=== PATIENT | male | born 1935 | race Caucasian/White ===

== ENCOUNTER 2016-05-26 13:35 | Inpatient (IN) | payer MEDICARE, BC, MEDICAID ==
--- NOTE | 2016-05-26 13:46 | ED Physician Chart ---
Chief Complaint/HPI - Patient Information Date Seen:: 05/26/16 Time Seen:: 13:46 Chief Complaint:: cough History of Present Illness:: 80-year-old male history of COPD brought in by EMS with acute, constant, nonproductive, moderate, cough that started this morning. Has associated fever and slight shortness of breath. Historian:: Patient, EMS Review:: Nurse's Note Reviewed, EMS run form Reviewed, Transfer documents Reviewed Review of Systems - Review of Systems Other: Complete system review otherwise unremarkable except as noted in HPI. Past Medical History - Past Medical History Past Medical History: HTN, Asthma/COPD, Thyroid disorder, Other (coronary artery disease, peripheral vascular disease) Family History: None Social History: Non Smoker, No Alcohol, No Drug Use, Care Facility Surgical History: other (left BKA) Psychiatricy History: None Medication: Reviewed Family Medical History - Family Member Mother History Unknown: Yes Physical Exam - Physical Examination Other:: INITIAL VITAL SIGNS: Reviewed by me GENERAL: Alert and interactive. No acute distress HEAD: Head is normocephalic and atraumatic EYES: EOMI. . No scleral icterus. No conjunctival injection ENT: Moist mucous membranes. NECK: Supple. No masses. Full range of motion RESPIRATORY: No tachypnea. Coarse breath sounds bilaterally with prolonged expiratory phase bilaterally. No wheezing, rales, or rhonchi CV: Regular rate and rhythm. No murmurs, rubs, or gallops ABDOMEN: Soft, non-distended, non-tender. No guarding. No rebound. No masses. EXTREMITIES: No deformity. No cyanosis. No edema. 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 SKIN: Warm and dry. No obvious rashes. NEUROLOGIC: Alert and oriented. Face is symmetric. Speech is normal. Moves all extremities equally. Motor and sensory distally intact. Labs/Radiology/EKG Results - Lab Results Results: Lab Results 05/26/16 05/26/16 05/26/16 Range/Units 13:55 13:55 13:55 WBC 18.5 H (4.8-10.8) Th/cmm RBC 4.13 (3.80-5.80) Mil/cmm Hgb 12.2 L (12.6-17.4) gm/dL Hct 37.5 L (39.0-49.0) % MCV 90.6 (80-99) fl MCH 29.6 (27.0-31.0) pg MCHC Differential 32.7 (28.0-36.0) pg RDW 19.8 (11.5-20.0) % Plt Count 451 H (150-400) Th/cmm MPV 7.2 fl Neutrophils % 81.8 H (40.0-80.0) % Lymphocytes % 10.0 L (20.0-50.0) % Monocytes % 7.2 (2.0-10.0) % Eosinophils % 0.2 (0.0-5.0) % Basophils % 0.8 (0.0-2.0) % PT 10.5 (9.5-11.5) SECONDS INR 1.01 (0.5-1.4) PTT (Actin FS) 26.3 (26.0-38.0) SECONDS Sodium 127 L (136-145) mEq/L Potassium 5.6 H (3.5-5.1) mEq/L Chloride 95 L (98-107) mEq/L Carbon Dioxide 23.1 (21.0-31.0) mEq/L Anion Gap 14.5 (7.0-16.0) BUN 19 (7-25) mg/dL Creatinine 1.0 (0.7-1.3) mg/dL Est GFR ( Amer) TNP Est GFR (Non-Af Amer) TNP BUN/Creatinine Ratio 19.0 Glucose 114 H (70-105) mg/dL Whole Bld Lactic Acid (0.60-1.99) mmol/L Calcium 10.0 (8.6-10.3) mg/dL Total Bilirubin 0.5 (0.3-1.0) mg/dL AST 18 (13-39) U/L ALT 10 (7-52) U/L Alkaline Phosphatase 111 H (34-104) U/L Creatine Kinase 21 L (30-223) U/L Total Protein 7.5 (6.0-8.3) gm/dL Albumin 4.1 L (4.2-5.5) gm/dL Globulin 3.4 gm/dL Albumin/Globulin Ratio 1.2 (1.0-1.8) 05/26/16 Range/Units 13:55 WBC (4.8-10.8) Th/cmm RBC (3.80-5.80) Mil/cmm Hgb (12.6-17.4) gm/dL Hct (39.0-49.0) % MCV (80-99) fl MCH (27.0-31.0) pg MCHC Differential (28.0-36.0) pg RDW (11.5-20.0) % Plt Count (150-400) Th/cmm MPV fl Neutrophils % (40.0-80.0) % Lymphocytes % (20.0-50.0) % Monocytes % (2.0-10.0) % Eosinophils % (0.0-5.0) % Basophils % (0.0-2.0) % PT (9.5-11.5) SECONDS INR (0.5-1.4) PTT (Actin FS) (26.0-38.0) SECONDS Sodium (136-145) mEq/L Potassium (3.5-5.1) mEq/L Chloride (98-107) mEq/L Carbon Dioxide (21.0-31.0) mEq/L Anion Gap (7.0-16.0) BUN (7-25) mg/dL Creatinine (0.7-1.3) mg/dL Est GFR ( Amer) Est GFR (Non-Af Amer) BUN/Creatinine Ratio Glucose (70-105) mg/dL Whole Bld Lactic Acid 1.94 (0.60-1.99) mmol/L Calcium (8.6-10.3) mg/dL Total Bilirubin (0.3-1.0) mg/dL AST (13-39) U/L ALT (7-52) U/L Alkaline Phosphatase (34-104) U/L Creatine Kinase (30-223) U/L Total Protein (6.0-8.3) gm/dL Albumin (4.2-5.5) gm/dL Globulin gm/dL Albumin/Globulin Ratio (1.0-1.8) - Radiology Results Results: Single AP VIEW Portable Chest X-ray was interpreted independently and contemporaneously by Elsy Powell MD: No cardiomegaly Normal mediastinum Lower lobe atelectasis versus infiltrate No pneumothorax No soft tissue or bony abnormalities - EKG Interpretations Comments:: 12-lead EKG Interpretation by Elsy Powell MD: Ventricular paced complexes with rate of 87 beats per minute Normal axis Normal intervals No acute ST or T wave changes. No obvious STEMI ED Septic Shock - . Is Septic Shock (SBP<90, OR Lactate>4 mmol\L) present?: No Reassessment (Disposition) - Reassessment Reassessment:: Patient appears to be having COPD exacerbation. Received IV Solu-Medrol, and breathing treatment. Received IV antibiotics. Patient was stabilized. Also has left lower extremity cellulitis of the stump where the BKA was done. Discussed case with the admitting physician. Patient admitted for COPD exacerbation. Reassessment Condition:: Unchanged - Diagnosis Diagnosis:: COPD exacerbation Left lower extremity cellulitis Hypercalcemia Hypertension - Patient Disposition Discharge/Transfer:: Acute Care w/in this hosp Admitted to:: Med/Surg Admitting Medical Physician:: Padilla Owen Time:: 14:20 Condition at Disposition:: Stable ED Discharge Plan - Patient Disposition Admit/Discharge/Transfer: Acute Care w/in this hosp Condition at Disposition: Stable
[2016-05-26] MEDS ORDERED: Albuterol/Ipratropium Neb 3 ML AERS HHN ONE ×2 (13:54→14:14)
[2016-05-26] MEDS ORDERED: cefTRIAXone 1 GM in Sodium Chloride 0.9% 50 ML IV ONE (13:55)
[2016-05-26] MEDS ORDERED: Sodium Chloride 0.9% 1,000 ML IV ONE (13:56)
[2016-05-26 14:38] LABS: % BASOPHILS 0.8 % (0.0-2.0); % EOSINOPHILS 0.2 % (0.0-5.0); % MONOCYTES 7.2 % (2.0-10.0); % NEUTROPHILS 81.8 % (40.0-80.0); HEMATOCRIT 37.5 % (39.0-49.0); HEMOGLOBIN 12.2 gm/dL (12.6-17.4); MEAN CELL VOLUME 90.6 fl (80-99); MEAN CORPUSCULAR HEMOGLOBIN 29.6 pg (27.0-31.0); MEAN CORPUSCULAR HGB CONC 32.7 pg (28.0-36.0); MEAN PLATELET VOLUME 7.2 fl; NEUTROPHILE ABSOLUTE 15.2 Th/cmm (1.8-8.0); PLATELET COUNT 451 Th/cmm (150-400); RED BLOOD COUNT 4.13 Mil/cmm (3.80-5.80); RED CELL DISTRIBUTION WIDTH 19.8 % (11.5-20.0)
[2016-05-26 14:43] LABS: WHITE BLOOD COUNT 18.5 Th/cmm (4.8-10.8)
[2016-05-26 14:44] LABS: INR 1.01 (0.5-1.4); PROTHROMBIN TIME (TEST) 10.5 SECONDS (9.5-11.5)
[2016-05-26 14:46] LABS: ALB/GLOB RATIO 1.2 (1.0-1.8); ALKALINE PHOSPHATASE 111 U/L (34-104); ANION GAP 14.5 (7.0-16.0); BILIRUBIN,TOTAL 0.5 mg/dL (0.3-1.0); BUN - UREA NITROGEN 19 mg/dL (7-25); CARBON DIOXIDE 23.1 mEq/L (21.0-31.0); CHLORIDE 95 mEq/L (98-107); GLUCOSE 114 mg/dL (70-105); POTASSIUM SERUM 5.6 mEq/L (3.5-5.1); SGOT 18 U/L (13-39); SGPT/ALT 10 U/L (7-52); SODIUM SERUM 127 mEq/L (136-145)
--- NOTE | 2016-05-26 14:50 | Diagnostic Imaging Report ---
CHEST X-RAY: AP view INDICATION: pain COMPARISON: None Findings: Chronic lung changes are seen with increased right basal lung markings. There is also 2 cm left midlung opacity. No pleural effusions. Heart size normal. Atherosclerosis is noted. Degenerative changes of the spine are noted with scoliosis and compression fracture of a midthoracic vertebral body. Gas-filled loops of bowel and stomach are seen along the upper abdomen. IMPRESSION: Chronic lung changes of probable COPD. Right basal atelectasis versus scarring. Underlying infiltrate is less likely. 2 cm left midlung opacity nonspecific, however a granuloma or other pulmonary nodules cannot be excluded. Recommend correlation with old exams if available. Alternatively, CT of the chest is recommended for further assessment. Atherosclerotic vascular disease. Pacemaker noted. Final results were administered to the ER on 05/26/2016 at 2:47 PM.
[2016-05-26 15:42] LABS: URINE BILIRUBIN NEGATIVE (NEGATIVE); URINE BLOOD TRACE (NEGATIVE); URINE COLOR YELLOW; URINE GLUCOSE (UA) NEGATIVE (NEGATIVE); URINE KETONE NEGATIVE (NEGATIVE); URINE PH 6.5; URINE PROTEIN NEGATIVE (NEGATIVE); URINE UROBILINOGEN 0.2 E.U./dL (0.2 - 1.0)
[2016-05-26 15:43] LABS: URINE BACTERIA 1+ /hpf (NONE SEEN); URINE EPITHELIAL CELLS OCCASIONAL /lpf (FEW); URINE RBC 0-2 /hpf (0-5)
[2016-05-26 15:44] LABS: URINE WBC 50-100 /hpf (0-5)
[2016-05-26] MEDS ORDERED: Albuterol/Ipratropium Neb 3 ML AERS HHN PRN (15:46)
[2016-05-26] MEDS: Albuterol/Ipratropium Neb 3 ML AERS HHN SCH (20:23)
[2016-05-26] MEDS ORDERED: LEVOFLOXACIN IV ONE (20:40)
[2016-05-26] MEDS: Levofloxacin 500mg/100mL 500 MG/100 ML BAG IV SCH (21:04)
[2016-05-26] MEDS: HYDROmorphone 1 mg/mL 1mL Syr IVP PRN (21:05)
--- NOTE | 2016-05-26 21:18 | Admit Criteria Form ---
Admit Criteria Forms - Admit Criteria Diagnosis: COPD Clinical Indications for Admission to Inpatient Care (Place 'X' for any and all applicable criteria): Admission is indicated for ANY ONE of the following (1)(2)(3): [X]I. Acute exacerbation by high-risk comorbidity (e.g., pneumonia, dysrhythmia, heart failure, pleural effusion, pneumothorax) or severe underlying COPD (e.g., steroid dependent) [ ]II. Inpatient admission required rather than observation care (see Chronic Obstructive Pulmonary Disease: Observation Care) because of ANY ONE of the following: [ ]a) New or pre-existing signs or symptoms of COPD (eg, dyspnea or Tachypnea at rest or with minimal activity) that persist despite outpatient and observation care treatment [ ]b) New-onset hypoxemia (room air SaO2 less than 90%, PO2 less than 60 mm Hg (8.0 kPa)) that persists despite outpatient and observation care treatment [ ]c) Worsening of pre-existing hypoxemia (eg, new or increased requirement for supplemental oxygen to maintain oxygenation at baseline level) that persists despite outpatient and observation care treatment, with oxygen treatment needs performable only in acute inpatient setting [ ]d) Hypercarbia (PCO2 greater than 40 mm Hg (5.3 kPa))-induced respiratory acidosis (pH less than 7.35) that persists despite outpatient and observation care treatment [ ]e) Supplemental oxygen or respiratory treatments for over 24 hours that are performable only in acute inpatient setting [ ]f) Chest tube placement with active evacuation (e.g., suction, drainage) (5) [ ]g) Other condition, treatment or monitoring requiring inpatient admission [ ]III. Planned invasive surgical or diagnostic procedures requiring acute- care hospitalization [ ]IV. Acute respiratory failure (e.g., uncompensated hypercarbia, severe hypoxemia) [ ]V. Severe comorbid condition (e.g., severe steroid myopathy, acute vertebral fracture) that has acutely worsened pulmonary function [ ]. Confusion state, lethargy, obtundation, stupor or coma Extended stay beyond goal length of stay may be needed for (31)(32): [ ]a ) Respiratory Failure. [ ]b) Severe or persisting hypoxemia or hypercarbia [ ]c) Severe or persistent dyspnea [ ]d) Comorbidities (e.g. chronic heart failure, atrial fibrillation with rapid response, pneumonia) [ ]e) Malnutrition The original [facility] content created by [facility] [place] has been revised. The portions of the content which have been revised are identified through the use of italic text or in bold, and [facility] has neither reviewed nor approved the modified material. All other unmodified content is copyright [email or web address]. Please see references footnoted in the original [email or web address] edition 2016 Admit Criteria Met?: Yes
[2016-05-27] MEDS: HYDROmorphone 1 mg/mL 1mL Syr IVP PRN (01:07)
[2016-05-27] MEDS: Albuterol/Ipratropium Neb 3 ML AERS HHN SCH ×4 (01:58→18:42)
[2016-05-27] MEDS ORDERED: HYDROmorphone 1 mg/mL 1mL Syr IVP ONE (02:02)
[2016-05-27] MEDS: HYDROmorphone 2 mg/mL 1mL Vial IVP PRN ×5 (05:17→20:00)
[2016-05-27] MEDS ORDERED: IOHEXOL 300MG/ML 100 ML VIAL IVP ONE (10:30)
--- NOTE | 2016-05-27 11:55 | General Progress Note ---
Subjective - Review of Systems Service Date: 05/27/16 Subjective: c/o pain sob cough Objective - Results Result Diagrams: 05/26/16 13:55 05/26/16 13:55 Recent Labs: Laboratory Last Values WBC 18.5 Th/cmm (4.8-10.8) H 05/26/16 13:55 RBC 4.13 Mil/cmm (3.80-5.80) 05/26/16 13:55 Hgb 12.2 gm/dL (12.6-17.4) L 05/26/16 13:55 Hct 37.5 % (39.0-49.0) L 05/26/16 13:55 MCV 90.6 fl (80-99) 05/26/16 13:55 MCH 29.6 pg (27.0-31.0) 05/26/16 13:55 MCHC Differential 32.7 pg (28.0-36.0) 05/26/16 13:55 RDW 19.8 % (11.5-20.0) 05/26/16 13:55 Plt Count 451 Th/cmm (150-400) H 05/26/16 13:55 MPV 7.2 fl 05/26/16 13:55 Neutrophils % 81.8 % (40.0-80.0) H 05/26/16 13:55 Lymphocytes % 10.0 % (20.0-50.0) L 05/26/16 13:55 Monocytes % 7.2 % (2.0-10.0) 05/26/16 13:55 Eosinophils % 0.2 % (0.0-5.0) 05/26/16 13:55 Basophils % 0.8 % (0.0-2.0) 05/26/16 13:55 PT 10.5 SECONDS (9.5-11.5) 05/26/16 13:55 INR 1.01 (0.5-1.4) 05/26/16 13:55 PTT (Actin FS) 26.3 SECONDS (26.0-38.0) 05/26/16 13:55 Sodium 127 mEq/L (136-145) L 05/26/16 13:55 Potassium 5.6 mEq/L (3.5-5.1) H 05/26/16 13:55 Chloride 95 mEq/L (98-107) L 05/26/16 13:55 Carbon Dioxide 23.1 mEq/L (21.0-31.0) 05/26/16 13:55 Anion Gap 14.5 (7.0-16.0) 05/26/16 13:55 BUN 19 mg/dL (7-25) 05/26/16 13:55 Creatinine 1.0 mg/dL (0.7-1.3) 05/26/16 13:55 Est GFR ( Amer) TNP 05/26/16 13:55 Est GFR (Non-Af Amer) TNP 05/26/16 13:55 BUN/Creatinine Ratio 19.0 05/26/16 13:55 Glucose 114 mg/dL (70-105) H 05/26/16 13:55 Whole Bld Lactic Acid 1.94 mmol/L (0.60-1.99) 05/26/16 13:55 Calcium 10.0 mg/dL (8.6-10.3) 05/26/16 13:55 Total Bilirubin 0.5 mg/dL (0.3-1.0) 05/26/16 13:55 AST 18 U/L (13-39) 05/26/16 13:55 ALT 10 U/L (7-52) 05/26/16 13:55 Alkaline Phosphatase 111 U/L (34-104) H 05/26/16 13:55 Creatine Kinase 21 U/L (30-223) L 05/26/16 13:55 Total Protein 7.5 gm/dL (6.0-8.3) 05/26/16 13:55 Albumin 4.1 gm/dL (4.2-5.5) L 05/26/16 13:55 Globulin 3.4 gm/dL 05/26/16 13:55 Albumin/Globulin Ratio 1.2 (1.0-1.8) 05/26/16 13:55 Urine Source CLEAN C 05/26/16 15:00 Urine Color YELLOW 05/26/16 15:00 Urine Clarity HAZY (CLEAR) 05/26/16 15:00 Urine pH 6.5 05/26/16 15:00 Ur Specific [place] 1.010 (1.005-1.030) 05/26/16 15:00 Urine Protein NEGATIVE mg/dL (NEGATIVE) 05/26/16 15:00 Urine Glucose (UA) NEGATIVE mg/dL (NEGATIVE) 05/26/16 15:00 Urine Ketones NEGATIVE mg/dL (NEGATIVE) 05/26/16 15:00 Urine Blood TRACE (NEGATIVE) 05/26/16 15:00 Urine Nitrate NEGATIVE (NEGATIVE) 05/26/16 15:00 Urine Bilirubin NEGATIVE (NEGATIVE) 05/26/16 15:00 Urine Urobilinogen 0.2 E.U./dL (0.2 - 1.0) 05/26/16 15:00 Ur Leukocyte Esterase MODERATE (NEGATIVE) H 05/26/16 15:00 Urine RBC 0-2 /hpf (0-5) H 05/26/16 15:00 Urine WBC 50-100 /hpf (0-5) H 05/26/16 15:00 Ur Epithelial Cells OCCASIONAL /lpf (FEW) 05/26/16 15:00 Urine Bacteria 1+ /hpf (NONE SEEN) H 05/26/16 15:00 Vancomycin Trough 17.7 ug/mL (10-20) 05/27/16 10:00 - Physical Exam Vitals and I&O: Vital Signs Temp 98.3 F 05/27/16 04:00 Pulse 92 05/27/16 07:16 Resp 17 05/27/16 08:00 BP 150/96 05/27/16 04:00 Pulse Ox 98 05/27/16 07:16 Intake & Output 05/26/16 05/27/16 05/27/16 18:59 06:59 18:59 Intake Total 350 Balance 350 Intake: Intake, IV Amount 350 Levofloxacin 500mg/100mL 100 500 mg In 100 ml @ 100 mls/hr IV Q24HR [facility] Rx#: [id number] Vancomycin HCl 1 gm In 250 Sodium Chloride 0.9% 250 ml @ 165 mls/hr IV Q24HR@ 0900 [facility] Rx#:[id number] Other: Stool Characteristics Soft Formed Active Medications: Current Medications Acetaminophen (Tylenol) 650 mg PO Q4HR PRN PRN Reason: FOR PAIN OR FEVER >100.4 Stop: 07/25/16 15:45 Last Admin: 05/26/16 17:59 Dose: 650 mg Albuterol/Ipratropium (Duoneb Neb) 3 ml HHN Q2H PRN PRN Reason: COUGH/CONGESTION Stop: 07/25/16 15:45 Albuterol/Ipratropium (Duoneb Neb) 3 ml HHN Q6HRT [facility] Stop: 07/25/16 18:59 Last Admin: 05/27/16 07:16 Dose: 3 ml Ascorbic Acid (Vitamin C) 500 mg PO DAILY [facility] Stop: 07/26/16 08:59 Last Admin: 05/27/16 09:03 Dose: 500 mg Atorvastatin Calcium (Lipitor) 40 mg PO HS [facility] Stop: 07/25/16 20:59 Last Admin: 05/26/16 21:07 Dose: 40 mg Bisacodyl (Dulcolax 10 Mg Supp) 10 mg RC DAILY PRN PRN Reason: IF MOM INEFFECTIVE Stop: 07/25/16 15:45 Carvedilol (Coreg) 3.125 mg PO Q12H [facility] Stop: 07/25/16 15:59 Last Admin: 05/27/16 04:00 Dose: 3.125 mg Clonidine HCl (Catapres) 0.1 mg PO Q4H PRN PRN Reason: HTN Stop: 07/25/16 15:45 Docusate Sodium (Colace) 100 mg PO BID [facility] Stop: 07/25/16 16:59 Last Admin: 05/27/16 09:03 Dose: 100 mg Famotidine (Pepcid) 20 mg PO DAILY [facility] Stop: 07/26/16 08:59 Last Admin: 05/27/16 09:03 Dose: 20 mg Hydromorphone HCl (Dilaudid) 2 mg IVP Q3HR PRN PRN Reason: Pain (Severe) Stop: 07/26/16 02:03 Last Admin: 05/27/16 09:04 Dose: 2 mg Levofloxacin (Levaquin Pb) 500 mg in 100 mls @ 100 mls/hr IV Q24HR [facility] Stop: 07/25/16 16:59 Last Infusion: 05/26/16 22:04 Dose: Infused Vancomycin HCl 1 gm/ Sodium (Chloride) 250 mls @ 165 mls/hr IV Q24HR@0900 [facility] Stop: 07/25/16 16:59 Last Admin: 05/27/16 09:03 Dose: 165 mls/hr Miscellaneous (Vancomycin Iv Per Pharmacy) 1 ea MC PRN PRN PRN Reason: PROTOCOL Stop: 07/25/16 16:29 Miscellaneous (Epoetin Randall [Epogen]) 10,000 unit IJ QWEEK 07 [facility] Stop: 07/25/16 15:59 Temazepam (Restoril) 30 mg PO HS PRN; Protocol PRN Reason: Insomnia Stop: 07/25/16 20:11 Last Admin: 05/26/16 21:07 Dose: 30 mg General: Alert, Moderate distress Neck: Supple Cardiovascular: Regular rate, Normal S1, Normal S2 Abdomen: Bowel sounds, Soft Neurological: Normal gait Psych/Mental Status: Mental status NL Assessment/Plan - Problem List Patient Problems: All Active Problems COUGH WITH FEVER AND WEAKNESS (Acute) h/o asthma (Acute) h/o asthma (Acute) h/o htn (Acute) leukocytosis (Acute) pnuemonia (Acute) pnuemonia (Acute) sepsis (Acute)
[2016-05-27] MEDS: Levofloxacin 500mg/100mL 500 MG/100 ML BAG IV SCH (16:18)
--- NOTE | 2016-05-27 21:30 | History & Physical ---
HISTORY OF PRESENT ILLNESS: The patient is a 80-year-old male patient known to have history of COPD, complaining of increasing shortness of breath, resides in [facility], came to the Emergency Room, was admitted for asthma and pneumonia. The patient is known to have history of hypertension, asthma, COPD, thyroid disorder. REVIEW OF SYSTEMS: Other than cough is negative. The patient had a workup done, which showed a white count of 18.5 and bilateral rales and the x-ray showed possible left lower lobe infiltrate. The patient was admitted for acute pneumonia, leukocytosis, rule out sepsis, COPD exacerbation. PAST MEDICAL HISTORY: As ____enumerated above, history of asthma, COPD, and thyroid disorder. PHYSICAL EXAMINATION: GENERAL: Alert, oriented male patient, short of breath. HEAD: Normal. ENT: Normal. LUNGS: Bilateral rhonchi. CARDIOVASCULAR: S1, S2 heard. ABDOMEN: Soft. Bowel sounds are heard. CENTRAL NERVOUS SYSTEM: Grossly normal. 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 The patient is being admitted. I will go ahead and give him antibiotics and I will have Dr. Graham also see the patient. I will follow the patient. Thank you very much for your time. JOB# [id number]
[2016-05-28] MEDS: Albuterol/Ipratropium Neb 3 ML AERS HHN SCH ×4 (00:20→19:45)
[2016-05-28] MEDS: HYDROmorphone 2 mg/mL 1mL Vial IVP PRN ×5 (04:10→20:21)
--- NOTE | 2016-05-28 09:14 | General Progress Note ---
Subjective - Review of Systems Service Date: 05/28/16 Subjective: c/o abdominal pains after eating pineapple Objective - Results Result Diagrams: 05/26/16 13:55 05/26/16 13:55 Recent Labs: Laboratory Last Values WBC 18.5 Th/cmm (4.8-10.8) H 05/26/16 13:55 RBC 4.13 Mil/cmm (3.80-5.80) 05/26/16 13:55 Hgb 12.2 gm/dL (12.6-17.4) L 05/26/16 13:55 Hct 37.5 % (39.0-49.0) L 05/26/16 13:55 MCV 90.6 fl (80-99) 05/26/16 13:55 MCH 29.6 pg (27.0-31.0) 05/26/16 13:55 MCHC Differential 32.7 pg (28.0-36.0) 05/26/16 13:55 RDW 19.8 % (11.5-20.0) 05/26/16 13:55 Plt Count 451 Th/cmm (150-400) H 05/26/16 13:55 MPV 7.2 fl 05/26/16 13:55 Neutrophils % 81.8 % (40.0-80.0) H 05/26/16 13:55 Lymphocytes % 10.0 % (20.0-50.0) L 05/26/16 13:55 Monocytes % 7.2 % (2.0-10.0) 05/26/16 13:55 Eosinophils % 0.2 % (0.0-5.0) 05/26/16 13:55 Basophils % 0.8 % (0.0-2.0) 05/26/16 13:55 PT 10.5 SECONDS (9.5-11.5) 05/26/16 13:55 INR 1.01 (0.5-1.4) 05/26/16 13:55 PTT (Actin FS) 26.3 SECONDS (26.0-38.0) 05/26/16 13:55 Sodium 127 mEq/L (136-145) L 05/26/16 13:55 Potassium 5.6 mEq/L (3.5-5.1) H 05/26/16 13:55 Chloride 95 mEq/L (98-107) L 05/26/16 13:55 Carbon Dioxide 23.1 mEq/L (21.0-31.0) 05/26/16 13:55 Anion Gap 14.5 (7.0-16.0) 05/26/16 13:55 BUN 19 mg/dL (7-25) 05/26/16 13:55 Creatinine 1.0 mg/dL (0.7-1.3) 05/26/16 13:55 Est GFR ( Amer) TNP 05/26/16 13:55 Est GFR (Non-Af Amer) TNP 05/26/16 13:55 BUN/Creatinine Ratio 19.0 05/26/16 13:55 Glucose 114 mg/dL (70-105) H 05/26/16 13:55 Whole Bld Lactic Acid 1.94 mmol/L (0.60-1.99) 05/26/16 13:55 Calcium 10.0 mg/dL (8.6-10.3) 05/26/16 13:55 Total Bilirubin 0.5 mg/dL (0.3-1.0) 05/26/16 13:55 AST 18 U/L (13-39) 05/26/16 13:55 ALT 10 U/L (7-52) 05/26/16 13:55 Alkaline Phosphatase 111 U/L (34-104) H 05/26/16 13:55 Creatine Kinase 21 U/L (30-223) L 05/26/16 13:55 Total Protein 7.5 gm/dL (6.0-8.3) 05/26/16 13:55 Albumin 4.1 gm/dL (4.2-5.5) L 05/26/16 13:55 Globulin 3.4 gm/dL 05/26/16 13:55 Albumin/Globulin Ratio 1.2 (1.0-1.8) 05/26/16 13:55 Urine Source CLEAN C 05/26/16 15:00 Urine Color YELLOW 05/26/16 15:00 Urine Clarity HAZY (CLEAR) 05/26/16 15:00 Urine pH 6.5 05/26/16 15:00 Ur Specific [place] 1.010 (1.005-1.030) 05/26/16 15:00 Urine Protein NEGATIVE mg/dL (NEGATIVE) 05/26/16 15:00 Urine Glucose (UA) NEGATIVE mg/dL (NEGATIVE) 05/26/16 15:00 Urine Ketones NEGATIVE mg/dL (NEGATIVE) 05/26/16 15:00 Urine Blood TRACE (NEGATIVE) 05/26/16 15:00 Urine Nitrate NEGATIVE (NEGATIVE) 05/26/16 15:00 Urine Bilirubin NEGATIVE (NEGATIVE) 05/26/16 15:00 Urine Urobilinogen 0.2 E.U./dL (0.2 - 1.0) 05/26/16 15:00 Ur Leukocyte Esterase MODERATE (NEGATIVE) H 05/26/16 15:00 Urine RBC 0-2 /hpf (0-5) H 05/26/16 15:00 Urine WBC 50-100 /hpf (0-5) H 05/26/16 15:00 Ur Epithelial Cells OCCASIONAL /lpf (FEW) 05/26/16 15:00 Urine Bacteria 1+ /hpf (NONE SEEN) H 05/26/16 15:00 Vancomycin Trough 17.7 ug/mL (10-20) 05/27/16 10:00 - Physical Exam Vitals and I&O: Vital Signs Temp 98.0 F 05/28/16 08:32 Pulse 98 05/28/16 08:32 Resp 18 05/28/16 08:32 BP 141/84 05/28/16 08:32 Pulse Ox 97 05/28/16 08:32 Intake & Output 05/27/16 05/28/16 05/28/16 18:59 06:59 18:59 Intake Total 1900 500 Output Total 1200 1600 Balance 700 -1100 Intake: Intake, IV Amount 350 Levofloxacin 500mg/100mL 100 500 mg In 100 ml @ 100 mls/hr IV Q24HR [facility] Rx#: [id number] Vancomycin HCl 1 gm In 250 Sodium Chloride 0.9% 250 ml @ 165 mls/hr IV Q24HR@ 0900 [facility] Rx#:[id number] Oral 1550 500 Output: Urine 1200 1600 Other: Stool Characteristics Soft Formed Active Medications: Current Medications Acetaminophen (Tylenol) 650 mg PO Q4HR PRN PRN Reason: FOR PAIN OR FEVER >100.4 Stop: 07/25/16 15:45 Last Admin: 05/26/16 17:59 Dose: 650 mg Albuterol/Ipratropium (Duoneb Neb) 3 ml HHN Q2H PRN PRN Reason: COUGH/CONGESTION Stop: 07/25/16 15:45 Albuterol/Ipratropium (Duoneb Neb) 3 ml HHN Q6HRT [facility] Stop: 07/25/16 18:59 Last Admin: 05/28/16 06:44 Dose: Not Given Ascorbic Acid (Vitamin C) 500 mg PO DAILY [facility] Stop: 07/26/16 08:59 Last Admin: 05/28/16 08:14 Dose: 500 mg Atorvastatin Calcium (Lipitor) 40 mg PO HS [facility] Stop: 07/25/16 20:59 Last Admin: 05/27/16 20:49 Dose: 40 mg Bisacodyl (Dulcolax 10 Mg Supp) 10 mg RC DAILY PRN PRN Reason: IF MOM INEFFECTIVE Stop: 07/25/16 15:45 Carvedilol (Coreg) 3.125 mg PO Q12H [facility] Stop: 07/25/16 15:59 Last Admin: 05/28/16 03:52 Dose: 3.125 mg Clonidine HCl (Catapres) 0.1 mg PO Q4H PRN PRN Reason: HTN Stop: 07/25/16 15:45 Docusate Sodium (Colace) 100 mg PO BID [facility] Stop: 07/25/16 16:59 Last Admin: 05/28/16 08:14 Dose: 100 mg Famotidine (Pepcid) 20 mg PO DAILY [facility] Stop: 07/26/16 08:59 Last Admin: 05/28/16 08:14 Dose: 20 mg Hydromorphone HCl (Dilaudid) 2 mg IVP Q3HR PRN PRN Reason: Pain (Severe) Stop: 07/26/16 02:03 Last Admin: 05/28/16 07:14 Dose: 2 mg Levofloxacin (Levaquin Pb) 500 mg in 100 mls @ 100 mls/hr IV Q24HR [facility] Stop: 07/25/16 16:59 Last Infusion: 05/27/16 17:40 Dose: Infused Vancomycin HCl 1 gm/ Sodium (Chloride) 250 mls @ 165 mls/hr IV Q24HR@0900 [facility] Stop: 07/25/16 16:59 Last Admin: 05/28/16 08:13 Dose: 165 mls/hr Miscellaneous (Vancomycin Iv Per Pharmacy) 1 ea MC PRN PRN PRN Reason: PROTOCOL Stop: 07/25/16 16:29 Miscellaneous (Epoetin Randall [Epogen]) 10,000 unit IJ QWEEK 0730 [facility] Stop: 07/25/16 15:59 Temazepam (Restoril) 30 mg PO HS PRN; Protocol PRN Reason: Insomnia Stop: 07/25/16 20:11 Last Admin: 05/27/16 20:50 Dose: 30 mg General: No acute distress HEENT: Atraumatic Neck: Supple Cardiovascular: Regular rate Lungs: Other (increased respiratory effort ) Abdomen: Bowel sounds Extremities: Other (celllitis) Neurological: Normal gait Assessment/Plan - Problem List Patient Problems: All Active Problems COUGH WITH FEVER AND WEAKNESS (Acute) h/o asthma (Acute) h/o asthma (Acute) h/o htn (Acute) leukocytosis (Acute) pnuemonia (Acute) pnuemonia (Acute) sepsis (Acute) - Assessment Assessment: abdominal pains - Plan Plan: cpm
--- NOTE | 2016-05-28 10:33 | Diagnostic Imaging Report ---
CT scan of the chest with intravenous contrast HISTORY: Pneumonia Total DLP equals 154 CTDI equals 4.1 Following administration of intravenous contrast, axial sections were obtained from a level above the clavicles down to level below the diaphragm. The overall heart size appears normal. Coronary artery and atherosclerotic vascular calcification noted. Normal-sized lymph nodes are seen within the mediastinum. Abnormal focal pulmonary parenchymal density consistent with consolidation and/or atelectasis noted in the right lower lobe. Pleural thickening also seen. Small calcification noted along the pleural consistent with a chronic etiology. Mild nonspecific interstitial changes noted in left lower lobe. No discrete abnormal hilar masses are identified. IMPRESSION: 1. Focal pulmonary parenchymal density suggesting atelectasis and/or consolidation within the right lower lobe with pleural thickening. I days may be chronic. However, pneumonia cannot be excluded. Clinical correlation is needed. Additional mild nonspecific interstitial changes also noted in the left lower 2. Coronary artery and atherosclerotic vascular calcification
[2016-05-28] MEDS: Levofloxacin 500mg/100mL 500 MG/100 ML BAG IV SCH (16:46)
[2016-05-29] MEDS: Albuterol/Ipratropium Neb 3 ML AERS HHN SCH ×4 (01:37→12:58)
[2016-05-29] MEDS: HYDROmorphone 2 mg/mL 1mL Vial IVP PRN ×7 (02:00→20:30)
[2016-05-29 08:08] LABS: ANION GAP 10.8 (7.0-16.0); BUN - UREA NITROGEN 9 mg/dL (7-25); BUN/CREATININE RATIO 11.3; CALCIUM SERUM 9.4 mg/dL (8.6-10.3); CARBON DIOXIDE 27.2 mEq/L (21.0-31.0); CHLORIDE 99 mEq/L (98-107); CREATININE - SERUM 0.8 mg/dL (0.7-1.3); GLUCOSE 105 mg/dL (70-105); SODIUM SERUM 133 mEq/L (136-145)
[2016-05-29 08:10] LABS: % BASOPHILS 0.4 % (0.0-2.0); % EOSINOPHILS 0.8 % (0.0-5.0); % LYMPHOCYTES 21.4 % (20.0-50.0); % MONOCYTES 8.8 % (2.0-10.0); % NEUTROPHILS 68.6 % (40.0-80.0); HEMOGLOBIN 11.2 gm/dL (12.6-17.4); MEAN CELL VOLUME 90.1 fl (80-99); MEAN CORPUSCULAR HEMOGLOBIN 29.8 pg (27.0-31.0); MEAN PLATELET VOLUME 7.2 fl; NEUTROPHILE ABSOLUTE 5.9 Th/cmm (1.8-8.0); PLATELET COUNT 377 Th/cmm (150-400); RED BLOOD COUNT 3.77 Mil/cmm (3.80-5.80); RED CELL DISTRIBUTION WIDTH 18.5 % (11.5-20.0)
[2016-05-29 08:15] LABS: WHITE BLOOD COUNT 8.7 Th/cmm (4.8-10.8)
--- NOTE | 2016-05-29 08:22 | General Progress Note ---
Subjective - Review of Systems Subjective: c/o abdominal pains after eating pineapple Objective - Results Result Diagrams: 05/29/16 07:35 05/29/16 07:35 Recent Labs: Laboratory Last Values WBC 8.7 Th/cmm (4.8-10.8) D 05/29/16 07:35 RBC 3.77 Mil/cmm (3.80-5.80) L 05/29/16 07:35 Hgb 11.2 gm/dL (12.6-17.4) L 05/29/16 07:35 Hct 34.0 % (39.0-49.0) L 05/29/16 07:35 MCV 90.1 fl (80-99) 05/29/16 07:35 MCH 29.8 pg (27.0-31.0) 05/29/16 07:35 MCHC Differential 33.0 pg (28.0-36.0) 05/29/16 07:35 RDW 18.5 % (11.5-20.0) 05/29/16 07:35 Plt Count 377 Th/cmm (150-400) 05/29/16 07:35 MPV 7.2 fl 05/29/16 07:35 Neutrophils % 68.6 % (40.0-80.0) 05/29/16 07:35 Lymphocytes % 21.4 % (20.0-50.0) 05/29/16 07:35 Monocytes % 8.8 % (2.0-10.0) 05/29/16 07:35 Eosinophils % 0.8 % (0.0-5.0) 05/29/16 07:35 Basophils % 0.4 % (0.0-2.0) 05/29/16 07:35 PT 10.5 SECONDS (9.5-11.5) 05/26/16 13:55 INR 1.01 (0.5-1.4) 05/26/16 13:55 PTT (Actin FS) 26.3 SECONDS (26.0-38.0) 05/26/16 13:55 Sodium 133 mEq/L (136-145) L 05/29/16 07:35 Potassium 4.0 mEq/L (3.5-5.1) 05/29/16 07:35 Chloride 99 mEq/L (98-107) 05/29/16 07:35 Carbon Dioxide 27.2 mEq/L (21.0-31.0) 05/29/16 07:35 Anion Gap 10.8 (7.0-16.0) 05/29/16 07:35 BUN 9 mg/dL (7-25) 05/29/16 07:35 Creatinine 0.8 mg/dL (0.7-1.3) 05/29/16 07:35 Est GFR ( Amer) TNP 05/29/16 07:35 Est GFR (Non-Af Amer) TNP 05/29/16 07:35 BUN/Creatinine Ratio 11.3 05/29/16 07:35 Glucose 105 mg/dL (70-105) 05/29/16 07:35 Whole Bld Lactic Acid 1.94 mmol/L (0.60-1.99) 05/26/16 13:55 Calcium 9.4 mg/dL (8.6-10.3) 05/29/16 07:35 Total Bilirubin 0.5 mg/dL (0.3-1.0) 05/26/16 13:55 AST 18 U/L (13-39) 05/26/16 13:55 ALT 10 U/L (7-52) 05/26/16 13:55 Alkaline Phosphatase 111 U/L (34-104) H 05/26/16 13:55 Creatine Kinase 21 U/L (30-223) L 05/26/16 13:55 Total Protein 7.5 gm/dL (6.0-8.3) 05/26/16 13:55 Albumin 4.1 gm/dL (4.2-5.5) L 05/26/16 13:55 Globulin 3.4 gm/dL 05/26/16 13:55 Albumin/Globulin Ratio 1.2 (1.0-1.8) 05/26/16 13:55 Urine Source CLEAN C 05/26/16 15:00 Urine Color YELLOW 05/26/16 15:00 Urine Clarity HAZY (CLEAR) 05/26/16 15:00 Urine pH 6.5 05/26/16 15:00 Ur Specific Cold[place] 1.010 (1.005-1.030) 05/26/16 15:00 Urine Protein NEGATIVE mg/dL (NEGATIVE) 05/26/16 15:00 Urine Glucose (UA) NEGATIVE mg/dL (NEGATIVE) 05/26/16 15:00 Urine Ketones NEGATIVE mg/dL (NEGATIVE) 05/26/16 15:00 Urine Blood TRACE (NEGATIVE) 05/26/16 15:00 Urine Nitrate NEGATIVE (NEGATIVE) 05/26/16 15:00 Urine Bilirubin NEGATIVE (NEGATIVE) 05/26/16 15:00 Urine Urobilinogen 0.2 E.U./dL (0.2 - 1.0) 05/26/16 15:00 Ur Leukocyte Esterase MODERATE (NEGATIVE) H 05/26/16 15:00 Urine RBC 0-2 /hpf (0-5) H 05/26/16 15:00 Urine WBC 50-100 /hpf (0-5) H 05/26/16 15:00 Ur Epithelial Cells OCCASIONAL /lpf (FEW) 05/26/16 15:00 Urine Bacteria 1+ /hpf (NONE SEEN) H 05/26/16 15:00 Vancomycin Trough 13.0 ug/mL (10-20) 05/29/16 07:35 - Physical Exam Vitals and I&O: Vital Signs Temp 98.2 F 05/29/16 04:00 Pulse 91 05/29/16 04:33 Resp 18 05/29/16 04:00 BP 138/79 05/29/16 04:33 Pulse Ox 98 05/29/16 04:00 Intake & Output 05/28/16 05/29/16 05/29/16 18:59 06:59 18:59 Intake Total 700 620 Output Total 1350 1301 Balance -650 -681 Intake: Oral 700 620 Output: Urine 1350 1300 Stool 1 Other: Stool Characteristics Formed Active Medications: Current Medications Acetaminophen (Tylenol) 650 mg PO Q4HR PRN PRN Reason: FOR PAIN OR FEVER >100.4 Stop: 07/25/16 15:45 Last Admin: 05/26/16 17:59 Dose: 650 mg Albuterol/Ipratropium (Duoneb Neb) 3 ml HHN Q2H PRN PRN Reason: COUGH/CONGESTION Stop: 07/25/16 15:45 Albuterol/Ipratropium (Duoneb Neb) 3 ml HHN Q6HRT CORTES Stop: 07/25/16 18:59 Last Admin: 05/29/16 07:47 Dose: 3 ml Ascorbic Acid (Vitamin C) 500 mg PO DAILY CORTES Stop: 07/26/16 08:59 Last Admin: 05/28/16 08:14 Dose: 500 mg Atorvastatin Calcium (Lipitor) 40 mg PO HS CORTES Stop: 07/25/16 20:59 Last Admin: 05/28/16 21:46 Dose: 40 mg Bisacodyl (Dulcolax 10 Mg Supp) 10 mg RC DAILY PRN PRN Reason: IF MOM INEFFECTIVE Stop: 07/25/16 15:45 Carvedilol (Coreg) 3.125 mg PO Q12H CORTES Stop: 07/25/16 15:59 Last Admin: 05/29/16 04:33 Dose: 3.125 mg Clonidine HCl (Catapres) 0.1 mg PO Q4H PRN PRN Reason: HTN Stop: 07/25/16 15:45 Docusate Sodium (Colace) 100 mg PO BID [facility] Stop: 07/25/16 16:59 Last Admin: 05/28/16 16:34 Dose: 100 mg Epoetin Randall (Epogen) 10,000 units SUBQ We [facility] Stop: 08/02/16 11:59 Famotidine (Pepcid) 20 mg PO DAILY [facility] Stop: 07/26/16 08:59 Last Admin: 05/28/16 08:14 Dose: 20 mg Hydromorphone HCl (Dilaudid) 2 mg IVP Q3HR PRN PRN Reason: Pain (Severe) Stop: 07/26/16 02:03 Last Admin: 05/29/16 05:35 Dose: 2 mg Levofloxacin (Levaquin Pb) 500 mg in 100 mls @ 100 mls/hr IV Q24HR [facility] Stop: 07/25/16 16:59 Last Admin: 05/28/16 16:46 Dose: 100 mls/hr Vancomycin HCl 1 gm/ Sodium (Chloride) 250 mls @ 165 mls/hr IV Q24HR@0900 CORTES Stop: 07/25/16 16:59 Last Admin: 05/28/16 08:13 Dose: 165 mls/hr Miscellaneous (Vancomycin Iv Per Pharmacy) 1 ea MC PRN PRN PRN Reason: PROTOCOL Stop: 07/25/16 16:29 Temazepam (Restoril) 30 mg PO HS PRN; Protocol PRN Reason: Insomnia Stop: 07/25/16 20:11 Last Admin: 05/28/16 21:46 Dose: 30 mg Assessment/Plan - Problem List Patient Problems: All Active Problems COUGH WITH FEVER AND WEAKNESS (Acute) h/o asthma (Acute) h/o asthma (Acute) h/o htn (Acute) leukocytosis (Acute) pnuemonia (Acute) pnuemonia (Acute) sepsis (Acute) - Assessment Assessment: abdominal pains - Plan Plan: cpm Nutritional Asmnt/Malnutr-PDOC - Dietary Evaluation Malnutrition Findings (Please click <Entered> for more info): Nutritional Asmnt/Malnutrition Start: 05/28/16 15: 27 Text: Status: Complete Freq: Document 05/28/16 15:27 GSUN (Rec: 05/28/16 15:44 GSUN [email or web address]) Nutritional Asmnt/Malnutrition Patient General Information Nutritional Screening High Risk Screening Diagnosis Acute COPD, left lower extremity cellulitis Pertinent Medical Hx/Surgical Hx COPD, HTN, asthma, thyroid disorder, left BKA Subjective Information 80 year old male from SNF. Pt was seen sitting upright in bed, alert, pleasant, cooperative, sipping on coffee . Pt reported UBW around 115lb and he has been at this weight for his whole life, denied recnet weight changes. Unable to obtain CBA due to bedscale not properly calibrated. Pt stated he does not have great appetite due to unfamiliar with this facility , however makes himself eat. Avg PO intake 75-100% yesterday, meeting nutritional needs. Pt appeared thin not lethargic, overall mod-severe muscle/fat wasting normal. Current Diet Order/ Nutrition Support Low sodium Pertinent Medications Vitamin C, Lipitor, Dulcolax, Colace, Pepcid, Dilaudid, Vancomycin Pertinent Labs 05/26: reviewed. Nutritional Hx/Data Height 1.68 m Height (Calculated Centimeters) 167.6 Usual body Weight (lbs) 115 [place] Body Weight 142lb Recent Weight Change No Weight Status Underweight GI Symptoms Food Allergies No Cultural/Ethnic/[employer]ief [place]. Usual diet at home Unknown. 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 Problem Problem Underweight related to Etiology possibly energy imbalance aeb Signs/Symptoms: BMI <18.5, muscle/fat depletion Malnutrition Alert Body Fat Depletion (Severe) Mod to Severe Depletion Muscle Mass (Severe) Mod to Severe Depletion Intervention/Recommendation Comments 1. Continue with low sodium diet. Current avg PO intake is adequate to meet nturitional needs and promote weight gain. Expected Outcomes/Goals Expected Outcomes/Goals 1. PO intake continue to meet at least 100% of estimated nutritional needs. 2. Weight trend towards IBW.
[2016-05-29] MEDS: Levofloxacin 500mg/100mL 500 MG/100 ML BAG IV SCH (16:13)
[2016-06-03] MEDS ORDERED: Epoetin Alfa 20000 Units/mL Vial SUBQ SCH (12:00)
--- NOTE | 2016-06-08 22:14 | Discharge Summary ---
HOSPITAL COURSE: The patient was admitted through the Emergency Room from [facility] with chief complaint of shortness of breath and coughing for the past 3 days. From ER, a chest x-ray was done to rule out pneumonia and from ER the patient was diagnosed with COPD exacerbation and left lower extremity cellulitis and hypertension. The patient was admitted to the Med/Surg floor where the patient received series of IV steroids and also some breathing treatment, and IV antibiotics. Once stabilized, the patient was discharged back to [facility] for continuity of care. DISCHARGE DIAGNOSES: 1. Chronic obstructive pulmonary disease exacerbation. 2. Left lower extremity cellulitis. 3. Hypertension. JOB# [id number]
== END 2016-05-29 23:55 | DRG 871 ==
LOC: ER 13:35 → MSI 15:30
PROVIDERS: ADMIT Internal Medicine; ATTEND Internal Medicine
DX: A41.9 Sepsis, unspecified organism (principal); J18.9 Pneumonia, unspecified organism; L03.116 Cellulitis of left lower limb; T87.44 Infection of amputation stump, left lower extremity; J44.0 Chronic obstructive pulmonary disease with (acute) lower respiratory infection; J44.1 Chronic obstructive pulmonary disease with (acute) exacerbation; E83.52 Hypercalcemia; I10 Essential (primary) hypertension; J45.909 Unspecified asthma, uncomplicated; I25.10 Atherosclerotic heart disease of native coronary artery without angina pectoris; I73.9 Peripheral vascular disease, unspecified; Y83.8 Other surgical procedures as the cause of abnormal reaction of the patient, or of later complication, without mention of misadventure at the time of the procedure; Y92.89 Other specified places as the place of occurrence of the external cause; Z88.1 Allergy status to other antibiotic agents; Z88.2 Allergy status to sulfonamides; Z89.512 Acquired absence of left leg below knee; Z88.0 Allergy status to penicillin
CPT/HCPCS: 36415-UA; 71010-TC; 71260-TC; 80048-TC; 80053-TC; 80202-TC; 81001-TC; 82550-TC; 83605; 85025-TC; 85610-TC; 85730-TC; 87086-90; 93005; 94640; 94760; J0696; J1170; J1956; J2930; J3370; J7030; Q9967; Z7610